=== PATIENT | female | born 1990 | race Caucasian/White ===

== ENCOUNTER 2017-03-13 06:19 | Day surgery (SDC) | payer BC ==
[2017-03-07 11:49] LABS: BASOPHILS % (AUTO) 0.4 % (0.0-2.0); EOSINOPHILS # (AUTO) 0.1 K/uL (0.0-0.4); HEMATOCRIT 41.9 % (36-48); LYMPHOCYTES # (AUTO) 2.1 K/uL (1.0-5.5); LYMPHOCYTES % (AUTO) 31.1 % (20.5-51.5); MEAN CORPUSCULAR HEMOGLOBIN 30 pg (27-31); MEAN CORPUSCULAR HGB CONC 34 % (32-36); MEAN CORPUSCULAR VOLUME 90 fL (79.0-98.0); MONOCYTES # (AUTO) 0.3 K/uL (0.0-1.0); NEUTROPHILS # (AUTO) 4.1 K/uL (1.8-7.7); NEUTROPHILS % (AUTO) 63.5 % (40.0-70.0); PLATELET COUNT (AUTO) 387 K/uL (130-430); RED BLOOD CELL COUNT(AUTO) 4.63 MIL/uL (4.2-6.2); RED CELL DISTRIBUTION WIDTH 12.1 % (9.0-15.0); WHITE BLOOD COUNT (AUTO) 6.6 K/uL (4.8-10.8)
[2017-03-07 12:02] LABS: PROTHROMBIN TIME 9.7 SECS (9.5-12.5)
[2017-03-07 12:05] LABS: BILIRUBIN,URINE NEGATIVE (NEGATIVE); BLOOD, URINE NEGATIVE (NEGATIVE); CLARITY/URINE CLEAR (CLEAR); COLOR,URINE YELLOW (YELLOW); GLUCOSE,URINE NEGATIVE (NEGATIVE); KETONES,URINE NEGATIVE (NEGATIVE); LEUKOCYTE ESTERASE ,URINE NEGATIVE (NEGATIVE); NITRITE, URINE NEGATIVE (NEGATIVE); PROTEIN URINE NEGATIVE (NEGATIVE); UROBILINOGEN,URINE 0.2 (0.2-1.0)
[~2017-03-13] VITALS: Ht 162.6 cm; Wt 77.1 kg
[2017-03-13] MEDS ORDERED: NS IRRIG SOLN 1000 ML IR ONE (06:20)
[2017-03-13] MEDS ORDERED: [UNRECOGNIZED DRUG - OTHER] TP ONE (06:20)
[2017-03-13] MEDS ORDERED: ONDANSETRON HCL 4 MG/2 ML VIAL IVP ONE (06:20)
[2017-03-13] MEDS ORDERED: DEXAMETHASONE SOD PHOSPHATE 4 MG/ML VIAL IVP ONE (06:20)
[2017-03-13] MEDS ORDERED: METOCLOPRAMIDE HCL 10 MG/2 ML VIAL IVP ONE (06:20)
[2017-03-13] MEDS ORDERED: MIDAZOLAM HCL 5 MG/ML VIAL (VERSED) IV ONE (06:20)
[2017-03-13] MEDS ORDERED: ROCURONIUM BROMIDE 10 MG/ML (ZEMURON) IV ONE (06:20)
[2017-03-13] MEDS ORDERED: fentaNYL CITRATE/PF 100 MCG/2 ML AMP IVP ONE (06:20)
[2017-03-13] MEDS ORDERED: PROPOFOL 200MG/ 20ML VIAL (DIPRIVAN) IV ONE (06:20)
[2017-03-13] MEDS ORDERED: SEVOFLURANE 15 MIN GAS INH ONE (06:20)
[2017-03-13] MEDS ORDERED: LR 1,000 ML IV.SOLN IV ONE (06:20)
[2017-03-13] MEDS ORDERED: CEFAZOLIN SOD 1 GM/ ISO 50 ML PREMIX IV ONE (07:00)
[2017-03-13] MEDS ORDERED: LR 1,000 ML IV ONE (09:32)
[2017-03-13] MEDS ORDERED: fentaNYL CITRATE/PF 100 MCG/2 ML AMP IVP PRN (09:45)
[2017-03-13] MEDS ORDERED: ePHEDrine sulfate 50 MG/ML VIAL IVP PRN (09:45)
[2017-03-13] MEDS ORDERED: DIPHENHYDRAMINE INJ 50 MG/ML VIAL IVP PRN (09:45)
[2017-03-13] MEDS ORDERED: NALOXONE HCL 0.4 MG/ML AMP (NARCAN) IVP PRN (09:45)
[2017-03-13] MEDS ORDERED: NALBUPHINE HCL 10 MG/ML AMP IVP PRN (09:45)
[2017-03-13] MEDS ORDERED: ONDANSETRON HCL 4 MG/2 ML VIAL IVP PRN ×3 (09:45→10:00)
[2017-03-13] MEDS ORDERED: fentaNYL CITRATE/PF 100 MCG/2 ML AMP ONE (09:56)
[2017-03-13] MEDS ORDERED: ACETAMINOPHEN/CODEINE 300 MG-30 MG TABLET PO PRN (10:00)
[2017-03-13] MEDS ORDERED: ACETAMINOPHEN/CODEINE 300 MG-30 MG TABLET ONE (10:58)
[2017-03-13 12:27] VITALS: BP_SYST 114
== END 2017-03-13 13:00 | disposition home or self-care (01) ==
LOC: SDS 06:19 → SMU 06:24 → SDS 13:00
PROVIDERS: ATTEND Otolaryngology
DX: J35.01 Chronic tonsillitis (principal); J45.909 Unspecified asthma, uncomplicated; R00.0 Tachycardia, unspecified
CPT/HCPCS: 36415; 42826; 81003; 84703; 85025; 85610; 85730; 88304; J0690; J1100; J2250; J2405; J2704; J2765; J3010; J7120